=== PATIENT | female | born 1970 | race Caucasian/White ===

== ENCOUNTER → 2024-11-21 | Day surgery (SDC) | payer OTHER ==
[2024-11-15 11:45] LABS: BASOPHILS # (AUTO) 0.1 (0.0-0.1); BASOPHILS % 0.6 % (0.0-1.0); EOSINOPHILS # (AUTO) 0.3 (0.0-0.4); EOSINOPHILS % 3.3 % (0.0-6.0); HEMATOCRIT 30.4 % (34.2-44.1); HEMOGLOBIN 9.3 g/dL (12.0-16.0); LYMPHOCYTES # (AUTO) 1.8 (1.0-3.2); LYMPHOCYTES % 23.3 % (18.0-39.1); MEAN CORPUSCULAR HEMOGLOBIN 25.1 pg (28-32); MEAN CORPUSCULAR HGB CONC 30.6 g/dL (31-35); MEAN CORPUSCULAR VOLUME 82.2 fL (81-99); MONOCYTES # (AUTO) 0.4 (0.2-0.8); MONOCYTES % 5.6 % (4.4-11.3); NEUTROPHILS # (AUTO) 5.2 (2.1-6.9); NEUTROPHILS % 66.9 % (38.7-80.0); PLATELET COUNT 250 x10e3/uL (140-360); RED CELL DISTRIBUTION WIDTH 15.9 % (11.7-14.4); WHITE BLOOD COUNT 7.81 x10e3/uL (4.8-10.8)
[~2024-11-21] MED LIST: ACETAMINOPHEN 1000 MG/100 ML 100 ML IV ONE; BACLOFEN10 MG PO; BUPIVACAINE LIPOSOME/PF 266 MG/20 ML IJ ONE; DEXAMETHASONE SOD PHOS INJ 4 MG/ML SDV ONE; EPHEDRINE SULFATE INJ 50 MG/ML VIAL ONE; FAMOTIDINE 20 MG/2 ML VIAL IV ONE; FARXIGA5 MG PO; FENTANYL CITRATE/PF 100MCG/2 ML INJ ONE; GLYCOPYRROLATE INJ 0.2 MG/ML VIAL ONE; KETAMINE 50MG/5ML SYR ONE; L-LYSINE500 M1 PO; LACTATED RINGER'S 1,000 ML ONE; LANTUS 3ML100 UNITS/ SQ; METOCLOPRAMIDE HCL 10 MG/2ML VIAL ONE; MIDAZOLAM HCL 2 MG/2 ML VIAL ONE; MOUNJARO7.5 MG/0.5 SQ; NEOSTIGMINE 1 MG/ML 10ML VIAL ONE; NOVOLOG100 UNIT/1 SC; ONDANSETRON HCL INJ 2MG/ML 2ML 2 MG/ML VIAL ONE; POTASSIUM99 M1 PO; PROPOFOL IV EMULSION 10 MG/ML 20 ML VIAL ONE; ROCURONIUM BROMIDE 1 ML IV ONE; ROSUVASTATIN CA10 MG PO; VITAMIN D310 MCG PO
[2024-11-21 10:10] LABS: ANION GAP 14.3 mmol/L (8-16); CREATININE, SERUM 0.83 mg/dL (0.57-1.11); POTASSIUM 4.3 mmol/L (3.5-5.1)
[2024-11-21 10:18] LABS: CALCIUM 9.4 mg/dL (8.4-10.2)
[2024-11-21 14:23] VITALS: TEMP 98.6
[2024-11-21 15:40] VITALS: BP 144/79; PULSE 95; RESP 16; O2SAT 94
== END | disposition home or self-care (01) ==
LOC: OR 07:43
PROVIDERS: ATTEND Orthopaedic Surgery Sports Medicine
DX: M75.111 Incomplete rotator cuff tear or rupture of right shoulder, not specified as traumatic (principal); S43.431A Superior glenoid labrum lesion of right shoulder, initial encounter; S83.272A Complex tear of lateral meniscus, current injury, left knee, initial encounter; S83.512A Sprain of anterior cruciate ligament of left knee, initial encounter; M65.911 Unspecified synovitis and tenosynovitis, right shoulder; M75.81 Other shoulder lesions, right shoulder; E11.9 Type 2 diabetes mellitus without complications; R63.5 Abnormal weight gain; Z71.82 Exercise counseling; W01.0XXA Fall on same level from slipping, tripping and stumbling without subsequent striking against object, initial encounter; Y92.512 Supermarket, store or market as the place of occurrence of the external cause; Z01.810 Encounter for preprocedural cardiovascular examination; Z01.812 Encounter for preprocedural laboratory examination; Z79.4 Long term (current) use of insulin; Z79.85 Long-term (current) use of injectable non-insulin antidiabetic drugs; Z79.1 Long term (current) use of non-steroidal anti-inflammatories (NSAID); Z79.899 Other long term (current) drug therapy; Z79.84 Long term (current) use of oral hypoglycemic drugs; Z68.43 Body mass index [BMI] 50.0-59.9, adult; Z71.3 Dietary counseling and surveillance
CPT/HCPCS: 29807; 29827; 36415 ×2; 80048; 81025; 82948; 85025; 93005; C1713 ×3; J0131; J0666; J0690; J1100; J2250; J2405; J2704; J2710; J2765; J3010; J7121